=== PATIENT | male | born 1955 | race Caucasian/White ===

== ENCOUNTER 2021-05-21 06:35 | Inpatient (IN) ==
[~2021-05-21 06:35] MED LIST: ceFAZolin 1,000 MG, Sodium Chloride IRRigation 1,000 ML IR ONE
[2021-05-21] MEDS ORDERED: Protamine Sulfate 50 MG/5 ML VIAL IVP ONE (06:44)
[2021-05-21] MEDS ORDERED: Heparin 1,000 UNITS/500 mL 2,500 ML ONE (06:44)
[2021-05-21] MEDS ORDERED: Isovue-300 50ML VIAL ONE (06:45)
[2021-05-21] MEDS ORDERED: *HR* FentaNYL (PF) 100 MCG/2 ML VIAL ONE (07:03)
[2021-05-21] MEDS ORDERED: *HR* Midazolam HCl 2 MG/2 ML VIAL ONE (07:03)
[2021-05-21] MEDS ORDERED: *HR* Propofol 200 MG/20 ML VIAL IVP ONE (07:04)
[2021-05-21] MEDS ORDERED: Ondansetron 4 MG/2 ML VIAL ONE (07:06)
[2021-05-21] MEDS ORDERED: Lidocaine -MPF 2% 5 ML VIAL ONE (07:06)
[2021-05-21] MEDS ORDERED: *HR* Succinylcholine 200 MG/10 ML VIAL IVP ONE (07:08)
[2021-05-21] MEDS ORDERED: *HR* Phenylephrine 10 MG/ML VIAL ONE (07:10)
[2021-05-21] MEDS ORDERED: Acetaminophen IV 1,000 MG/100 ML BAG IVPB ONE (07:10)
[2021-05-21] MEDS ORDERED: Heparin 1,000 UNITS/500 mL 500 ML ONE ×2 (07:12→07:29)
[2021-05-21] MEDS ORDERED: *HR* Remifentanil 2 MG VIAL IVP ONE (07:16)
[2021-05-21] MEDS ORDERED: Lidocaine -MPF 4% 5 ML AMPUL ONE (07:20)
[2021-05-21] MEDS ORDERED: NiCARdipine 2.5 MG/10 ML Syringe IVPB ONE (07:21)
[2021-05-21] MEDS ORDERED: CeFAZolin Syr 2,000MG/20 ML 2,000 MG/20 ML SYRINGE IVPB ONE (07:21)
[2021-05-21] MEDS ORDERED: EPHEDrine 50 MG/ML VIAL ONE (07:25)
[2021-05-21] MEDS ORDERED: Ringers Solution, Lactated 1,000 ML IVC SCH (07:30)
[2021-05-21] MEDS ORDERED: *HR* Meperidine 25 MG/ML SYRINGE IVP PRN (07:37)
[2021-05-21] MEDS ORDERED: Ondansetron 4 MG/2 ML VIAL IVP PRN (07:37)
[2021-05-21] MEDS ORDERED: ceFAZolin 1,000 MG, Sodium Chloride IRRigation 1,000 ML IR ONE (08:15)
[2021-05-21 08:55] LABS: ABG Base Excess -1 mEq/L (-2 to 3); ABG Chloride 105 mEq/L (98-107); ABG Glucose 103 mg/dL (60-95); ABG HCO3 26 mEq/L (21-27); ABG Ionized Calcium 1.19 mmol/L (1.15-1.35); ABG Oxygen Saturation 100 % (95-98); ABG PCO2 50 mmHg (35-45); ABG PH 7.32 pH Units (7.32-7.45); ABG PO2 390 mmHg (85-104); ABG TCO2 27 mEq/L (20-26)
[2021-05-21] MEDS ORDERED: Heparin 1,000 UNITS/500 mL 0 ML ONE (09:32)
[2021-05-21] MEDS ORDERED: *HR* Vasopressin 20 UNIT/ML VIAL ONE (10:03)
[2021-05-21] MEDS: *HR* HYDROmorphone PF 0.5 MG/0.5 ML SYRINGE IVP PRN ×3 (11:06→11:26)
[2021-05-21] MEDS ORDERED: Etanercept [Enbrel] 50 MG/ML Syringe SQ SCH (12:14)
[2021-05-21] MEDS ORDERED: *HR* Labetalol 20 MG/4 ML SYRINGE IVP PRN (12:14)
[2021-05-21] MEDS ORDERED: Naloxone 0.4 MG/ML INJ IVP PRN (12:14)
[2021-05-21] MEDS ORDERED: Acetaminophen 325 MG TABLET PO PRN (12:14)
[2021-05-21] MEDS ORDERED: *HR* OxyCODONE Immed Rel 5 MG TABLET PO PRN (12:14)
[2021-05-21] MEDS ORDERED: *HR* HYDROcodone/Acet 5/325 mg TABLET PO PRN (12:14)
[2021-05-21] MEDS ORDERED: *HR* Labetalol 20 MG/4 ML SYRINGE IVP ONE (13:59)
[2021-05-21] MEDS: CeFAZolin 2,000 MG/120 ML BAG IVPB SCH (16:21)
[2021-05-21] MEDS ORDERED: Latanoprost 2.5 ML BOTTLE BOTH EYES SCH (18:00)
[2021-05-21] MEDS: Budesonide/Formoterol 160/4.5 1 PUFF INH IH SCH (20:04)
[2021-05-21] MEDS ORDERED: Melatonin 3 MG TABLET PO SCH (21:00)
[2021-05-22] MEDS: CeFAZolin 2,000 MG/120 ML BAG IVPB SCH ×2 (00:13→08:39)
[2021-05-22 04:03] LABS: Hematocrit 35.4 % (37.5-50.1); Hemoglobin 12.2 g/dL (12.9-16.9); Mean Corpuscular HGB Conc 34.5 g/dL (31.6-35.5); Mean Corpuscular Hemoglobin 30.1 pg (28.0-33.3); Mean Corpuscular Volume 87.4 fL (83.0-100.0); Mean Platelet Volume 9.5 fL (9.4-12.4); Platelet Count 148 K/mcL (140-400); Red Blood Count 4.05 M/mcL (4.19-5.50); White Blood Count 13.2 K/mcL (4.3-11.1)
[2021-05-22 04:18] LABS: BUN/Creatinine Ratio 16 (6-26); Blood Urea Nitrogen 17 mg/dL (8-23); Calcium 8.6 mg/dL (8.6-10.3); Carbon Dioxide 25 mEq/L (23-29); Chloride 108 mEq/L (98-107); Glucose 128 mg/dL (70-105); Osmolality,Calculated 287 (280-300); Potassium 4.4 mEq/L (3.5-5.1); Sodium 137 mEq/L (136-145); eGFR For African Americans > 60 (> 60); eGFR For Non-African Americans > 60 (> 60)
[2021-05-22 06:44] VITALS: BP 119/74; TEMP 98.2
[2021-05-22] MEDS: Budesonide/Formoterol 160/4.5 1 PUFF INH IH SCH (08:43)
[2021-05-22 08:56] VITALS: PULSE 79
[2021-05-22] MEDS ORDERED: Loratadine 10 MG TABLET PO SCH (09:00)
[2021-05-22] MEDS ORDERED: Folic Acid 1 MG TABLET PO SCH (09:00)
[2021-05-22] MEDS ORDERED: lisinopriL 20 MG TABLET PO SCH (09:00)
[2021-05-22] MEDS ORDERED: amLODIPine 5 MG TABLET PO SCH (09:00)
[2021-05-22 09:50] VITALS: O2SAT 97
[2021-05-24] MEDS ORDERED: Etanercept [Enbrel] 50 MG/ML Syringe SQ SCH (09:00)
[2021-05-27] MEDS ORDERED: *HR* Methotrexate 2.5 MG TABLET PO SCH (09:00)
== END 2021-05-22 10:32 | disposition home or self-care (01) | DRG 269 ==
LOC: SAMDAY 06:35 → 2NNU 12:07
PROVIDERS: ADMIT Surgery Vascular Surgery; ATTEND Surgery Vascular Surgery

== ENCOUNTER 2021-08-16 13:19 | Inpatient (IN) ==
[2021-08-16 13:53] LABS: Basophils # 0.1 K/mcL (0.0-0.2); Basophils % 0.6 %; Eosinophils # 0.1 K/mcL (0.0-0.6); Eosinophils % 0.8 %; Hemoglobin 14.4 g/dL (12.9-16.9); Immature Granulocytes % 0.6 % (0-4); Lymphocytes # 1.3 K/mcL (0.6-4.6); Lymphocytes % 11.2 %; Mean Corpuscular HGB Conc 32.7 g/dL (31.6-35.5); Mean Corpuscular Hemoglobin 29.4 pg (28.0-33.3); Mean Platelet Volume 10.6 fL (9.4-12.4); Monocytes # 1.2 K/mcL (0.0-1.3); Monocytes % 10.9 %; Neutrophils # 8.7 K/mcL (1.6-8.9); Platelet Count 251 K/mcL (140-400); Red Blood Count 4.89 M/mcL (4.19-5.50); Red Cell Distribution Width 18.3 % (11.5-14.5); Segmented Neutrophils % 75.9 %; White Blood Count 11.4 K/mcL (4.3-11.1)
[2021-08-16 14:33] LABS: BUN/Creatinine Ratio 19 (6-26); Blood Urea Nitrogen 18 mg/dL (8-23); Calcium 9.7 mg/dL (8.6-10.3); Carbon Dioxide 23 mEq/L (23-29); Chloride 100 mEq/L (98-107); Glucose 106 mg/dL (70-105); Osmolality,Calculated 280 (280-300); Potassium 4.6 mEq/L (3.5-5.1); Sodium 134 mEq/L (136-145); eGFR For African Americans > 60 (> 60); eGFR For Non-African Americans > 60 (> 60)
[2021-08-16 14:42] LABS: Troponin I < 0.03 ng/mL (< 0.04)
[2021-08-16] MEDS ORDERED: *HR* HYDROcodone/Acet 5/325 mg TABLET PO ONE (15:25)
[2021-08-16] MEDS ORDERED: Ondansetron ODT 4 MG TAB.RAPDIS SL ONE (15:25)
[2021-08-16] MEDS ORDERED: Isovue-370 500 ML BOTTLE IVP ONE ×2 (15:37→16:23)
[2021-08-16] MEDS ORDERED: Gadolinium Contrast Agent (WT Based) IV PRN ×2 (15:52→22:53)
[2021-08-16] MEDS ORDERED: Naloxone 0.4 MG/ML INJ IVP PRN (19:46)
[2021-08-16] MEDS ORDERED: Acetaminophen 325 MG TABLET PO PRN (19:52)
[2021-08-16] MEDS ORDERED: Ondansetron ODT 4 MG TAB.RAPDIS SL PRN (19:52)
[2021-08-16] MEDS ORDERED: 0.9 % Sodium Chloride 1,000 ML IVC SCH (20:00)
[2021-08-16 21:22] LABS: Alanine Aminotransferase 75 Units/L (7-52); Albumin 3.7 g/dL (3.5-5.7); Albumin/Globulin Ratio 1.1 (1.1-2.2); Alkaline Phosphatase 330 Units/L (34-104); Aspartate Amino Transferase 169 Units/L (13-39); Bilirubin,Direct 2.5 mg/dL (0.0-0.2); Bilirubin,Indirect 1.4 mg/dL (0.0-1.0); Bilirubin,Total 3.9 mg/dL (0.3-1.0); Globulin 3.3 g/dL (2.4-3.5)
[2021-08-17 01:08] LABS: Hematocrit 43.6 % (37.5-50.1); Hemoglobin 14.2 g/dL (12.9-16.9); Mean Corpuscular HGB Conc 32.6 g/dL (31.6-35.5); Mean Corpuscular Hemoglobin 29.1 pg (28.0-33.3); Mean Corpuscular Volume 89.3 fL (83.0-100.0); Mean Platelet Volume 10.7 fL (9.4-12.4); Platelet Count 262 K/mcL (140-400); Red Blood Count 4.88 M/mcL (4.19-5.50); Red Cell Distribution Width 18.4 % (11.5-14.5)
[2021-08-17 01:29] LABS: BUN/Creatinine Ratio 19 (6-26); Blood Urea Nitrogen 19 mg/dL (8-23); Calcium 9.4 mg/dL (8.6-10.3); Carbon Dioxide 23 mEq/L (23-29); Chloride 101 mEq/L (98-107); Glucose 108 mg/dL (70-105); Osmolality,Calculated 283 (280-300); Potassium 4.8 mEq/L (3.5-5.1); Sodium 135 mEq/L (136-145); eGFR For African Americans > 60 (> 60); eGFR For Non-African Americans > 60 (> 60)
[2021-08-17 01:30] LABS: Albumin 3.6 g/dL (3.5-5.7); Albumin/Globulin Ratio 1.1 (1.1-2.2); Bilirubin,Direct 2.3 mg/dL (0.0-0.2); Bilirubin,Indirect 1.4 mg/dL (0.0-1.0); Bilirubin,Total 3.7 mg/dL (0.3-1.0); Globulin 3.2 g/dL (2.4-3.5); Total Protein 6.8 g/dL (6.4-8.9)
[2021-08-17] MEDS ORDERED: Ipratropium/Albuterol Neb 3 ML IH SCH (04:00)
[2021-08-17] MEDS ORDERED: MethylPREDNISolone 40 MG/ML VIAL IVP SCH (04:00)
[2021-08-17] MEDS ORDERED: Azithromycin 500 MG in 0.9 % Sodium Chloride 250 ML IVPB SCH (09:00)
[2021-08-17] MEDS ORDERED: cefTRIAXone 1,000 MG in 0.9 % Sodium Chloride Mini Bag 100 ML IVPB SCH (09:00)
[2021-08-17] MEDS: lisinopriL 20 MG TABLET PO SCH (10:29)
[2021-08-17] MEDS: amLODIPine 5 MG TABLET PO SCH (10:29)
[2021-08-17] MEDS: Folic Acid 1 MG TABLET PO SCH (10:29)
[2021-08-17] MEDS: Simethicone 80 MG TAB.CHEW PO SCH ×4 (10:29→19:24)
[2021-08-17] MEDS: Ondansetron ODT 4 MG TAB.RAPDIS SL PRN (12:05)
[2021-08-17] MEDS: Latanoprost 2.5 ML BOTTLE BOTH EYES SCH (17:19)
[2021-08-18 03:16] LABS: Basophils # 0.1 K/mcL (0.0-0.2); Basophils % 1.1 %; Eosinophils # 0.2 K/mcL (0.0-0.6); Eosinophils % 1.6 %; Hematocrit 43.7 % (37.5-50.1); Hemoglobin 14.2 g/dL (12.9-16.9); Lymphocytes # 1.6 K/mcL (0.6-4.6); Lymphocytes % 14.6 %; Mean Corpuscular HGB Conc 32.5 g/dL (31.6-35.5); Mean Corpuscular Hemoglobin 29.7 pg (28.0-33.3); Mean Corpuscular Volume 91.4 fL (83.0-100.0); Mean Platelet Volume 10.9 fL (9.4-12.4); Monocytes # 1.6 K/mcL (0.0-1.3); Monocytes % 14.7 %; Neutrophils # 7.5 K/mcL (1.6-8.9); Platelet Count 263 K/mcL (140-400); Red Blood Count 4.78 M/mcL (4.19-5.50); Red Cell Distribution Width 18.7 % (11.5-14.5); White Blood Count 11.1 K/mcL (4.3-11.1)
[2021-08-18 03:34] LABS: Alanine Aminotransferase 60 Units/L (7-52); Albumin 3.4 g/dL (3.5-5.7); Albumin/Globulin Ratio 1.1 (1.1-2.2); Alkaline Phosphatase 295 Units/L (34-104); Aspartate Amino Transferase 133 Units/L (13-39); BUN/Creatinine Ratio 24 (6-26); Bilirubin,Total 3.8 mg/dL (0.3-1.0); Blood Urea Nitrogen 28 mg/dL (8-23); Calcium 9.5 mg/dL (8.6-10.3); Carbon Dioxide 21 mEq/L (23-29); Chloride 102 mEq/L (98-107); Globulin 3.1 g/dL (2.4-3.5); Glucose 70 mg/dL (70-105); Magnesium 1.6 mg/dL (1.6-2.6); Osmolality,Calculated 288 (280-300); Potassium 5.1 mEq/L (3.5-5.1); Sodium 137 mEq/L (136-145); Total Protein 6.5 g/dL (6.4-8.9); eGFR For African Americans > 60 (> 60); eGFR For Non-African Americans > 60 (> 60)
[2021-08-18] MEDS: Cholecalciferol (D-3) 1,000 UNIT (25MCG) TABLET PO SCH (09:13)
[2021-08-18] MEDS: Folic Acid 1 MG TABLET PO SCH (09:13)
[2021-08-18] MEDS: lisinopriL 20 MG TABLET PO SCH (09:13)
[2021-08-18] MEDS: Simethicone 80 MG TAB.CHEW PO SCH ×4 (09:14→19:43)
[2021-08-18] MEDS: amLODIPine 5 MG TABLET PO SCH (09:14)
[2021-08-18] MEDS: Ondansetron ODT 4 MG TAB.RAPDIS SL PRN ×2 (11:03→16:57)
[2021-08-18] MEDS: Latanoprost 2.5 ML BOTTLE BOTH EYES SCH (16:33)
[2021-08-19] MEDS ORDERED: polyethylene glycoL 3350 17 GM POWD.PACK PO PRN (00:30)
[2021-08-19 02:09] LABS: Basophils # 0.1 K/mcL (0.0-0.2); Basophils % 1.1 %; Eosinophils # 0.3 K/mcL (0.0-0.6); Eosinophils % 3.1 %; Hematocrit 41.4 % (37.5-50.1); Hemoglobin 13.5 g/dL (12.9-16.9); Lymphocytes # 1.6 K/mcL (0.6-4.6); Lymphocytes % 15.9 %; Mean Corpuscular HGB Conc 32.6 g/dL (31.6-35.5); Mean Corpuscular Hemoglobin 29.7 pg (28.0-33.3); Mean Corpuscular Volume 91.2 fL (83.0-100.0); Mean Platelet Volume 11.2 fL (9.4-12.4); Monocytes # 1.4 K/mcL (0.0-1.3); Monocytes % 14.1 %; Neutrophils # 6.4 K/mcL (1.6-8.9); Platelet Count 238 K/mcL (140-400); Red Blood Count 4.54 M/mcL (4.19-5.50); Red Cell Distribution Width 18.8 % (11.5-14.5); Segmented Neutrophils % 64.8 %; White Blood Count 9.9 K/mcL (4.3-11.1)
[2021-08-19 02:16] LABS: INR 1.2; Prothrombin Time 13.9 Seconds (9.4-12.1)
[2021-08-19 02:26] LABS: Albumin 3.3 g/dL (3.5-5.7); Albumin/Globulin Ratio 1.1 (1.1-2.2); Bilirubin,Direct 1.8 mg/dL (0.0-0.2); Bilirubin,Indirect 1.2 mg/dL (0.0-1.0); Calcium 9.4 mg/dL (8.6-10.3); Potassium 4.7 mEq/L (3.5-5.1); Total Protein 6.3 g/dL (6.4-8.9)
[2021-08-19] MEDS: Ringers Solution, Lactated 1,000 ML IVC SCH ×3 (08:07→20:50)
[2021-08-19] MEDS: amLODIPine 5 MG TABLET PO SCH (08:07)
[2021-08-19] MEDS: Simethicone 80 MG TAB.CHEW PO SCH ×4 (08:07→20:52)
[2021-08-19] MEDS: Cholecalciferol (D-3) 1,000 UNIT (25MCG) TABLET PO SCH (08:07)
[2021-08-19] MEDS: Folic Acid 1 MG TABLET PO SCH (08:07)
[2021-08-19] MEDS: lisinopriL 20 MG TABLET PO SCH (08:07)
[2021-08-19] MEDS: Ondansetron ODT 4 MG TAB.RAPDIS SL PRN (08:45)
[2021-08-19] MEDS ORDERED: *HR* Methotrexate 2.5 MG TABLET PO SCH (12:00)
[2021-08-19] MEDS ORDERED: Metoclopramide 10 MG/2 ML VIAL IVP ONE (13:30)
[2021-08-19] MEDS: *HR* Heparin 5,000 UNIT/ML VIAL SQ SCH ×2 (13:42→20:51)
[2021-08-19] MEDS: Latanoprost 2.5 ML BOTTLE BOTH EYES SCH (17:57)
[2021-08-20] MEDS: *HR* Heparin 5,000 UNIT/ML VIAL SQ SCH ×3 (05:36→20:46)
[2021-08-20] MEDS: Ringers Solution, Lactated 1,000 ML IVC SCH ×2 (05:36→23:29)
[2021-08-20 06:29] LABS: Basophils # 0.1 K/mcL (0.0-0.2); Basophils % 1.1 %; Eosinophils # 0.1 K/mcL (0.0-0.6); Eosinophils % 1.2 %; Hematocrit 43.1 % (37.5-50.1); Hemoglobin 14.1 g/dL (12.9-16.9); Lymphocytes # 1.2 K/mcL (0.6-4.6); Lymphocytes % 12.1 %; Mean Corpuscular HGB Conc 32.7 g/dL (31.6-35.5); Mean Corpuscular Hemoglobin 29.5 pg (28.0-33.3); Mean Corpuscular Volume 90.2 fL (83.0-100.0); Monocytes # 1.1 K/mcL (0.0-1.3); Monocytes % 10.7 %; Neutrophils # 7.5 K/mcL (1.6-8.9); Platelet Count 291 K/mcL (140-400); Red Blood Count 4.78 M/mcL (4.19-5.50); Red Cell Distribution Width 19.9 % (11.5-14.5); Segmented Neutrophils % 73.9 %; White Blood Count 10.1 K/mcL (4.3-11.1)
[2021-08-20 07:26] LABS: BUN/Creatinine Ratio 33 (6-26); Blood Urea Nitrogen 43 mg/dL (8-23); Calcium 9.5 mg/dL (8.6-10.3); Carbon Dioxide 19 mEq/L (23-29); Chloride 103 mEq/L (98-107); Glucose 83 mg/dL (70-105); Osmolality,Calculated 292 (280-300); Potassium 4.9 mEq/L (3.5-5.1); Sodium 136 mEq/L (136-145); eGFR For African Americans > 60 (> 60); eGFR For Non-African Americans 54 (> 60)
[2021-08-20] MEDS: Simethicone 80 MG TAB.CHEW PO SCH ×4 (07:40→20:46)
[2021-08-20] MEDS: Cholecalciferol (D-3) 1,000 UNIT (25MCG) TABLET PO SCH (07:40)
[2021-08-20] MEDS: Folic Acid 1 MG TABLET PO SCH (07:40)
[2021-08-20] MEDS: amLODIPine 5 MG TABLET PO SCH (07:40)
[2021-08-20] MEDS: Ondansetron ODT 4 MG TAB.RAPDIS SL PRN (09:56)
[2021-08-20] MEDS ORDERED: *HR* Methotrexate 2.5 MG TABLET PO ONE (15:00)
[2021-08-20] MEDS: Latanoprost 2.5 ML BOTTLE BOTH EYES SCH (16:33)
[2021-08-21 05:29] LABS: Basophils # 0.1 K/mcL (0.0-0.2); Basophils % 0.9 %; Eosinophils # 0.1 K/mcL (0.0-0.6); Eosinophils % 1.1 %; Hematocrit 42.7 % (37.5-50.1); Hemoglobin 14.1 g/dL (12.9-16.9); Immature Granulocytes % 0.8 % (0-4); Mean Corpuscular Volume 90.9 fL (83.0-100.0); Mean Platelet Volume 11.3 fL (9.4-12.4); Monocytes # 1.1 K/mcL (0.0-1.3); Monocytes % 12.4 %; Neutrophils # 6.2 K/mcL (1.6-8.9); Platelet Count 235 K/mcL (140-400); Red Cell Distribution Width 19.7 % (11.5-14.5); Segmented Neutrophils % 72.8 %; White Blood Count 8.5 K/mcL (4.3-11.1)
[2021-08-21 05:53] LABS: Alanine Aminotransferase 49 Units/L (7-52); Albumin 3.3 g/dL (3.5-5.7); Albumin/Globulin Ratio 1.1 (1.1-2.2); Alkaline Phosphatase 321 Units/L (34-104); Aspartate Amino Transferase 127 Units/L (13-39); BUN/Creatinine Ratio 31 (6-26); Bilirubin,Direct 2.6 mg/dL (0.0-0.2); Bilirubin,Indirect 1.2 mg/dL (0.0-1.0); Bilirubin,Total 3.8 mg/dL (0.3-1.0); Blood Urea Nitrogen 34 mg/dL (8-23); Calcium 9.5 mg/dL (8.6-10.3); Carbon Dioxide 20 mEq/L (23-29); Chloride 105 mEq/L (98-107); Globulin 2.9 g/dL (2.4-3.5); Glucose 75 mg/dL (70-105); Osmolality,Calculated 294 (280-300); Potassium 5.3 mEq/L (3.5-5.1); Sodium 139 mEq/L (136-145); Total Protein 6.2 g/dL (6.4-8.9); eGFR For African Americans > 60 (> 60); eGFR For Non-African Americans > 60 (> 60)
[2021-08-21] MEDS: *HR* Heparin 5,000 UNIT/ML VIAL SQ SCH ×3 (06:20→20:44)
[2021-08-21] MEDS: Simethicone 80 MG TAB.CHEW PO SCH ×4 (07:11→20:44)
[2021-08-21] MEDS: Cholecalciferol (D-3) 1,000 UNIT (25MCG) TABLET PO SCH (07:11)
[2021-08-21] MEDS: amLODIPine 5 MG TABLET PO SCH (07:11)
[2021-08-21] MEDS: Folic Acid 1 MG TABLET PO SCH (07:11)
[2021-08-21] MEDS: Ringers Solution, Lactated 1,000 ML IVC SCH (08:35)
[2021-08-21] MEDS: Ondansetron ODT 4 MG TAB.RAPDIS SL PRN (09:25)
[2021-08-21] MEDS: Latanoprost 2.5 ML BOTTLE BOTH EYES SCH (17:25)
[2021-08-22] MEDS: *HR* Heparin 5,000 UNIT/ML VIAL SQ SCH ×3 (06:36→20:19)
[2021-08-22] MEDS: Simethicone 80 MG TAB.CHEW PO SCH ×4 (06:36→20:19)
[2021-08-22] MEDS: Ondansetron ODT 4 MG TAB.RAPDIS SL PRN ×2 (08:01→20:19)
[2021-08-22] MEDS: amLODIPine 5 MG TABLET PO SCH (09:01)
[2021-08-22] MEDS: Folic Acid 1 MG TABLET PO SCH (09:02)
[2021-08-22] MEDS: Cholecalciferol (D-3) 1,000 UNIT (25MCG) TABLET PO SCH (09:02)
[2021-08-22 10:29] LABS: Alanine Aminotransferase 59 Units/L (7-52); Albumin 3.4 g/dL (3.5-5.7); Alkaline Phosphatase 339 Units/L (34-104); Aspartate Amino Transferase 139 Units/L (13-39); Bilirubin,Total 3.5 mg/dL (0.3-1.0); Globulin 3.3 g/dL (2.4-3.5); Total Protein 6.7 g/dL (6.4-8.9)
[2021-08-22] MEDS: Latanoprost 2.5 ML BOTTLE BOTH EYES SCH (16:48)
[2021-08-23] MEDS: *HR* Heparin 5,000 UNIT/ML VIAL SQ SCH ×2 (05:08→13:24)
[2021-08-23] MEDS: Ondansetron ODT 4 MG TAB.RAPDIS SL PRN (08:03)
[2021-08-23] MEDS: Folic Acid 1 MG TABLET PO SCH (08:04)
[2021-08-23] MEDS: amLODIPine 5 MG TABLET PO SCH (08:04)
[2021-08-23] MEDS: Cholecalciferol (D-3) 1,000 UNIT (25MCG) TABLET PO SCH (08:04)
[2021-08-23] MEDS: Simethicone 80 MG TAB.CHEW PO SCH ×3 (08:04→17:07)
[2021-08-23] MEDS: Morphine Sulfate ER (12 HR) 15 MG TABLET.ER PO SCH ×2 (09:37→17:07)
[2021-08-23 13:33] VITALS: BP 130/87; PULSE 98; TEMP 98.3; O2SAT 94
[2021-08-23] MEDS: Latanoprost 2.5 ML BOTTLE BOTH EYES SCH (17:17)
[2021-08-23] MEDS ORDERED: Morphine Sulfate ER (12 HR) 15 MG TABLET.ER PO SCH (18:00)
[2021-08-26] MEDS ORDERED: *HR* Methotrexate 2.5 MG TABLET PO SCH (12:00)
== END 2021-08-23 17:34 | disposition hospice, inpatient (51) | DRG 180 ==
LOC: EMEROOARM 13:19 → 2ANU 13:19 → SUATTDRO 18:58 → 2ANU 19:51 → SUATTDRO 08-18 08:01
PROVIDERS: ADMIT Internal Medicine; ATTEND Hospitalist

== ENCOUNTER 2021-08-23 17:02 | Inpatient (IN) ==
[2021-08-23] MEDS ORDERED: polyethylene glycoL 3350 17 GM POWD.PACK PO PRN (17:03)
[2021-08-23] MEDS ORDERED: Ondansetron ODT 4 MG TAB.RAPDIS SL PRN (17:03)
[2021-08-23] MEDS ORDERED: Atropine Sulfate 1% 40 DROP/2 ML BOTTLE SL PRN (17:03)
[2021-08-23] MEDS: Morphine Sulfate ER (12 HR) 15 MG TABLET.ER PO SCH (18:31)
[2021-08-23] MEDS: Latanoprost 2.5 ML BOTTLE BOTH EYES SCH (22:22)
[2021-08-23] MEDS: Simethicone 80 MG TAB.CHEW PO SCH (22:22)
[2021-08-24] MEDS: Morphine Sulfate ER (12 HR) 15 MG TABLET.ER PO SCH ×2 (05:17→17:13)
[2021-08-24] MEDS: amLODIPine 5 MG TABLET PO SCH (09:06)
[2021-08-24] MEDS: Folic Acid 1 MG TABLET PO SCH (09:06)
[2021-08-24] MEDS: Simethicone 80 MG TAB.CHEW PO SCH ×4 (09:06→20:22)
[2021-08-24] MEDS: Cholecalciferol (D-3) 1,000 UNIT (25MCG) TABLET PO SCH (09:06)
[2021-08-24] MEDS: Morphine Sulfate Oral CONC 10 MG/0.5 ML ORAL.SYG PO PRN ×2 (15:56→20:20)
[2021-08-24] MEDS: Haloperidol Oral Conc 10 MG/5 ML UDC PO PRN ×2 (17:13→22:40)
[2021-08-24] MEDS: Latanoprost 2.5 ML BOTTLE BOTH EYES SCH (20:22)
[2021-08-24 20:32] VITALS: BP 118/73; PULSE 75; TEMP 97.5; O2SAT 94
[2021-08-24] MEDS: Morphine Sulfate Oral CONC 10 MG/0.5 ML ORAL.SYG SL PRN (22:49)
[2021-08-25] MEDS ORDERED: Morphine Sulfate Oral CONC 10 MG/0.5 ML ORAL.SYG SL SCH (06:00)
[2021-08-25] MEDS: Simethicone 80 MG TAB.CHEW PO SCH (07:18)
[2021-08-25] MEDS: Folic Acid 1 MG TABLET PO SCH (07:18)
[2021-08-25] MEDS: Cholecalciferol (D-3) 1,000 UNIT (25MCG) TABLET PO SCH (07:19)
[2021-08-25] MEDS: amLODIPine 5 MG TABLET PO SCH (07:19)
[2021-08-25] MEDS: Morphine Sulfate Oral CONC 10 MG/0.5 ML ORAL.SYG SL PRN (08:24)
== END 2021-08-25 09:17 | disposition expired | DRG 951 ==
LOC: 2ANU 17:44
PROVIDERS: ADMIT Internal Medicine Hospice and Palliative Medicine; ATTEND Internal Medicine Hospice and Palliative Medicine